=== PATIENT | female | born 1995 | race Caucasian/White ===

== ENCOUNTER 2020-02-10 15:37 | Inpatient (IN) | payer OTHER ==
[~2020-02-10] VITALS: Ht 30.5 cm; Wt 5.0 kg
[2020-02-10] MEDS ORDERED: MESALAMINE800 MG PO (15:48)
[2020-02-10] MEDS ORDERED: INTEGRA PLUS C1 EACH PO (15:48)
== END 2020-02-13 17:15 | disposition home or self-care (01) | DRG 387 ==
LOC: ER 15:37 → EDBD 15:41 → ER 15:41 → MEDI 02-11 08:38 → MEDJ 02-11 08:39 → MEDI 02-11 21:02 → MEDJ 02-12 15:40
PROVIDERS: ADMIT Internal Medicine; ATTEND Internal Medicine
PROC: BW21ZZZ Computerized Tomography (CT Scan) of Abdomen and Pelvis (ICD-10-PCS; principal; 2020-02-11)
DX: K51.80 Other ulcerative colitis without complications (principal); A08.8 Other specified intestinal infections; Z20.828 Contact with and (suspected) exposure to other viral communicable diseases

== ENCOUNTER 2020-09-18 11:12 | Inpatient (IN) | payer OTHER ==
[~2020-09-18] VITALS: Ht 152.4 cm; Wt 50.8 kg
[~2020-09-18 11:12] MED LIST: INTEGRA PLUS C1 EACH PO; MESALAMINE800 MG PO
== END 2020-09-23 11:17 | disposition home or self-care (01) | DRG 386 ==
LOC: ER 11:12 → MEDI 20:30
PROVIDERS: ADMIT Internal Medicine; ATTEND Internal Medicine
PROC: 0DJ08ZZ Inspection of Upper Intestinal Tract, Via Natural or Artificial Opening Endoscopic (ICD-10-PCS; principal; 2020-09-20)
PROC: 0DBM8ZX Excision of Descending Colon, Via Natural or Artificial Opening Endoscopic, Diagnostic (ICD-10-PCS; 2020-09-21)
PROC: 0DBL8ZX Excision of Transverse Colon, Via Natural or Artificial Opening Endoscopic, Diagnostic (ICD-10-PCS; 2020-09-21)
PROC: 0DBN8ZX Excision of Sigmoid Colon, Via Natural or Artificial Opening Endoscopic, Diagnostic (ICD-10-PCS; 2020-09-21)
PROC: 0DBP8ZX Excision of Rectum, Via Natural or Artificial Opening Endoscopic, Diagnostic (ICD-10-PCS; 2020-09-21)
PROC: BW21YZZ Computerized Tomography (CT Scan) of Abdomen and Pelvis using Other Contrast (ICD-10-PCS; 2020-09-21)
DX: K51.00 Ulcerative (chronic) pancolitis without complications (principal); N39.0 Urinary tract infection, site not specified; K51.80 Other ulcerative colitis without complications; K29.50 Unspecified chronic gastritis without bleeding; R10.13 Epigastric pain; Z20.822 Contact with and (suspected) exposure to COVID-19

== ENCOUNTER 2021-01-07 11:07 | Emergency (ER) | payer OTHER ==
[~2021-01-07] VITALS: Ht 152.4 cm; Wt 47.2 kg
[2021-01-07] MEDS ORDERED: PAROXETINE HCL10 MG PO (11:37)
[2021-01-07] MEDS ORDERED: CLORAZEPATE D3.75 MG PO (11:37)
[2021-01-07] MEDS ORDERED: FOLIC ACID1 MG PO (11:38)
[2021-01-07] MEDS ORDERED: FAMOTIDINE20 MG PO (11:38)
[2021-01-07] MEDS ORDERED: INFLECTRA100 MG (11:39)
== END 2021-01-07 15:59 | disposition home or self-care (01) ==
LOC: ER 11:07
DX: D50.0 Iron deficiency anemia secondary to blood loss (chronic) (principal)

== ENCOUNTER 2021-08-18 15:11 | Inpatient (IN) | payer OTHER ==
[~2021-08-18] VITALS: Ht 152.4 cm; Wt 60.8 kg
[~2021-08-18 15:11] MED LIST changes: +CLORAZEPATE D3.75 MG PO; +FAMOTIDINE20 MG PO; +FOLIC ACID1 MG PO; +INFLECTRA100 MG; +PAROXETINE HCL10 MG PO
== END 2021-08-23 16:05 | disposition home or self-care (01) | DRG 387 ==
LOC: ER 15:11 → MEDJ 21:30 → SEC-K 21:30 → MEDJ 08-19 12:55
PROVIDERS: ADMIT Internal Medicine; ATTEND Internal Medicine
PROC: BW21ZZZ Computerized Tomography (CT Scan) of Abdomen and Pelvis (ICD-10-PCS; principal; 2021-08-18)
DX: K51.00 Ulcerative (chronic) pancolitis without complications (principal); R10.32 Left lower quadrant pain; R19.8 Other specified symptoms and signs involving the digestive system and abdomen; Z20.822 Contact with and (suspected) exposure to COVID-19

== ENCOUNTER 2023-02-14 09:04 | Inpatient (IN) | payer OTHER ==
[~2023-02-14] VITALS: Ht 152.4 cm; Wt 62.6 kg
[2023-02-15] MEDS ORDERED: PAXIL40 MG PO (15:45)
[2023-02-15] MEDS ORDERED: PEPCID AC20 MG PO (15:45)
[2023-02-15] MEDS ORDERED: NEXIUM40 M1 PO (15:45)
[2023-02-15] MEDS ORDERED: MILLIPRED5 MG PO (15:45)
[2023-02-15] MEDS ORDERED: STELARA90 MG/1 ML (15:46)
[2023-02-15] MEDS ORDERED: MIRTAZAPINE15 M1 PO (15:46)
[2023-02-15] MEDS ORDERED: LEVSIN/SL0.125 MG SL (15:46)
[2023-02-15] MEDS ORDERED: ZOFRAN8 MG PO (15:46)
[2023-02-22] MEDS ORDERED: PREDNISONE2.5 MG (15:19)
[2023-02-22] MEDS ORDERED: ESTAZOLAM2 MG (15:19)
[2023-02-22] MEDS ORDERED: ONDANSETRON HCL4 MG (15:23)
[2023-02-22] MEDS ORDERED: VITAMIN D3125 MC1 (15:24)
[2023-02-22] MEDS ORDERED: IRON325 MG (15:25)
[2023-02-22 21:32] LABS: ALBUMIN 2.9 gm/dL (3.4-5.0); CALCIUM 8.4 mg/dL (8.5-10.1); CREATININE SERUM 0.58 mg/dL (0.55-1.02); GFR 125.66; MAGNESIUM 1.7 mg/dL (1.8-2.4); PHOSPHOROUS 2.3 mg/dL (2.5-4.9); POTASSIUM 3.57 mEq/L (3.5-5.1)
[2023-02-22 22:08] LABS: HEMATOCRIT 36.9 % (36.0-45.00); HEMOGLOBIN 12.1 g/dL (12.0-15.00); MEAN CELL VOLUME 89.1 fL (80.00-100.00); MEAN CORPUSCULAR HEMOGLOBIN 29.3 pg (27.00-32.0); MEAN CORPUSCULAR HGB CONC 32.8 g/dl (32.0-36.0); PLATELET COUNT 474 K/uL (150-450); RED BLOOD COUNT 4.14 M/uL (4.00-6.00); RED CELL DISTRIBUTION WIDTH 13.2 % (11.5-14.5)
[2023-02-23 06:40] LABS: ALBUMIN 2.8 gm/dL (3.4-5.0); CALCIUM 8.1 mg/dL (8.5-10.1); CREATININE SERUM 0.44 mg/dL (0.55-1.02); GFR 172.85; MAGNESIUM 1.8 mg/dL (1.8-2.4); PHOSPHOROUS 3.7 mg/dL (2.5-4.9); POTASSIUM 4.09 mEq/L (3.5-5.1)
[2023-02-23 07:06] LABS: HEMATOCRIT 36.7 % (36.0-45.00); HEMOGLOBIN 12.4 g/dL (12.0-15.00); MEAN CELL VOLUME 87.8 fL (80.00-100.00); MEAN CORPUSCULAR HEMOGLOBIN 29.6 pg (27.00-32.0); MEAN CORPUSCULAR HGB CONC 33.7 g/dl (32.0-36.0); RED BLOOD COUNT 4.17 M/uL (4.00-6.00); RED CELL DISTRIBUTION WIDTH 13.1 % (11.5-14.5)
[2023-02-23 08:05] LABS: PLATELET COUNT 506 K/uL (150-450)
[2023-02-24 08:31] LABS: HEMATOCRIT 36.6 % (36.0-45.00); HEMOGLOBIN 11.8 g/dL (12.0-15.00); MEAN CELL VOLUME 89.9 fL (80.00-100.00); MEAN CORPUSCULAR HGB CONC 32.3 g/dl (32.0-36.0); PLATELET COUNT 605 K/uL (150-450); RED BLOOD COUNT 4.07 M/uL (4.00-6.00); RED CELL DISTRIBUTION WIDTH 13.4 % (11.5-14.5)
[2023-02-24 08:39] LABS: CALCIUM 8.4 mg/dL (8.5-10.1); CREATININE SERUM 0.4 mg/dL (0.55-1.02); GFR 192.94; MAGNESIUM 2.2 mg/dL (1.8-2.4); PHOSPHOROUS 2.2 mg/dL (2.5-4.9); POTASSIUM 3.76 mEq/L (3.5-5.1)
[2023-02-25 09:31] LABS: HEMATOCRIT 37.2 % (36.0-45.00); MEAN CELL VOLUME 90.2 fL (80.00-100.00); MEAN CORPUSCULAR HEMOGLOBIN 29.2 pg (27.00-32.0); MEAN CORPUSCULAR HGB CONC 32.3 g/dl (32.0-36.0); RED BLOOD COUNT 4.13 M/uL (4.00-6.00); RED CELL DISTRIBUTION WIDTH 13.5 % (11.5-14.5)
[2023-02-25 09:32] LABS: PLATELET COUNT 546 K/uL (150-450)
[2023-02-26 08:02] LABS: CALCIUM 8.5 mg/dL (8.5-10.1); CREATININE SERUM 0.5 mg/dL (0.55-1.02); GFR 149.14; MAGNESIUM 2.1 mg/dL (1.8-2.4); PHOSPHOROUS 3.7 mg/dL (2.5-4.9); POTASSIUM 3.37 mEq/L (3.5-5.1)
[2023-02-26 08:15] LABS: HEMATOCRIT 37.1 % (36.0-45.00); HEMOGLOBIN 12.6 g/dL (12.0-15.00); MEAN CELL VOLUME 88.3 fL (80.00-100.00); MEAN CORPUSCULAR HGB CONC 33.9 g/dl (32.0-36.0); RED CELL DISTRIBUTION WIDTH 13.9 % (11.5-14.5)
[2023-02-26 09:24] LABS: PLATELET COUNT 681 K/uL (150-450)
[2023-02-28 06:31] LABS: HEMATOCRIT 38.2 % (36.0-45.00); HEMOGLOBIN 12.5 g/dL (12.0-15.00); MEAN CELL VOLUME 89.1 fL (80.00-100.00); MEAN CORPUSCULAR HEMOGLOBIN 29.2 pg (27.00-32.0); MEAN CORPUSCULAR HGB CONC 32.8 g/dl (32.0-36.0); RED BLOOD COUNT 4.29 M/uL (4.00-6.00); RED CELL DISTRIBUTION WIDTH 13.3 % (11.5-14.5)
[2023-02-28 06:42] LABS: ALBUMIN 2.7 gm/dL (3.4-5.0); CALCIUM 8.3 mg/dL (8.5-10.1); CREATININE SERUM 0.44 mg/dL (0.55-1.02); GFR 172.85; MAGNESIUM 2.1 mg/dL (1.8-2.4); PHOSPHOROUS 4.6 mg/dL (2.5-4.9); POTASSIUM 3.38 mEq/L (3.5-5.1)
[2023-02-28 07:36] LABS: PLATELET COUNT 680 K/uL (150-450)
[2023-02-28] MEDS ORDERED: PEPCID AC20 MG PO (08:05)
[2023-02-28] MEDS ORDERED: TRAM1TAB98 PO (08:05)
[2023-02-28] MEDS ORDERED: INTESTINEX680 M1 PO (08:06)
[2023-02-28] MEDS ORDERED: DICY20TA PO (08:06)
== END 2023-02-28 14:02 | disposition home or self-care (01) | DRG 331 ==
LOC: ADM 02-15 12:30 → EDSTATUS 02-15 12:30 → O/R 02-22 08:17 → SURH 02-22 12:30 → SURG 02-22 19:42
PROVIDERS: Internal Medicine Geriatric Medicine; ADMIT Surgery; ATTEND Surgery
PROC: 0DTP4ZZ Resection of Rectum, Percutaneous Endoscopic Approach (ICD-10-PCS; 2023-02-22)
PROC: 0DUP47Z Supplement Rectum with Autologous Tissue Substitute, Percutaneous Endoscopic Approach (ICD-10-PCS; 2023-02-22)
PROC: 0D1B4Z4 Bypass Ileum to Cutaneous, Percutaneous Endoscopic Approach (ICD-10-PCS; principal; 2023-02-22 16:00)
DX: K51.011 Ulcerative (chronic) pancolitis with rectal bleeding (principal)

== ENCOUNTER 2023-03-28 18:31 | Inpatient (IN) | payer OTHER ==
[~2023-03-28] VITALS: Ht 152.4 cm; Wt 59.0 kg
[~2023-03-28 18:31] MED LIST changes: +DICY20TA PO; +ESTAZOLAM2 MG; +INTESTINEX680 M1 PO; +IRON325 MG; +LEVSIN/SL0.125 MG SL; +MILLIPRED5 MG PO; +MIRTAZAPINE15 M1 PO; +NEXIUM40 M1 PO; +ONDANSETRON HCL4 MG; +PAXIL40 MG PO; +PEPCID AC20 MG PO; +PREDNISONE2.5 MG; +STELARA90 MG/1 ML; +TRAM1TAB98 PO; +VITAMIN D3125 MC1; +ZOFRAN8 MG PO
[2023-03-28 20:39] LABS: HEMATOCRIT 42.3 % (36.0-45.00); HEMOGLOBIN 14.2 g/dL (12.0-15.00); MEAN CELL VOLUME 89.7 fL (80.00-100.00); MEAN CORPUSCULAR HEMOGLOBIN 30.1 pg (27.00-32.0); MEAN CORPUSCULAR HGB CONC 33.6 g/dl (32.0-36.0); RED BLOOD COUNT 4.72 M/uL (4.00-6.00)
[2023-03-28 20:53] LABS: BILIRUBIN TOTAL 0.64 mg/dL (0.3-1.2); CALCIUM 9.8 mg/dL (8.5-10.1); CREATININE SERUM 0.61 mg/dL (0.55-1.02); GFR 118.56; GLOBULINA 4.6 G/DL (2.4-3.5); POTASSIUM 3.48 mEq/L (3.5-5.1); TOTAL PROTEIN 8.6 gm/dL (6.4-8.2)
[2023-03-28 21:05] LABS: PLATELET COUNT 572 K/uL (150-450)
[2023-03-29 00:39] LABS: INR 0.98; PARTIAL THROMBOPLASTIN TIME 29.2 SECONDS (22.0-34.0); PROTHROMBIN TIME 10.3 SECONDS (9.0-11.5)
[2023-03-29 03:17] LABS: URINE APPEARANCE Turbid; URINE BILIRRUBIN Small (NEGATIVE); URINE BLOOD Negative; URINE COLOR Orange; URINE GLUCOSE Negative (NEGATIVE); URINE LEUKOCYTE Small; URINE NITRATE Positive; URINE PROTEIN 30 (NEGATIVE)
[2023-03-29 03:18] LABS: URINE BACTERIA 1336.8 uL (0.0-1933); URINE EPITHELIAL CELLS 19.6 uL (0.0-38.8); URINE RBC 28.1 uL (0.0-20.8); URINE WBC 13.4 uL (0.0-23.2)
[2023-03-29 03:38] LABS: URINE CRYSTALS MANY /HPF; URINE MUCUS SCANT
[2023-03-30 05:37] LABS: HEMATOCRIT 35.4 % (36.0-45.00); HEMOGLOBIN 11.9 g/dL (12.0-15.00); MEAN CELL VOLUME 90.2 fL (80.00-100.00); MEAN CORPUSCULAR HEMOGLOBIN 30.3 pg (27.00-32.0); MEAN CORPUSCULAR HGB CONC 33.6 g/dl (32.0-36.0); RED BLOOD COUNT 3.93 M/uL (4.00-6.00); RED CELL DISTRIBUTION WIDTH 13.7 % (11.5-14.5)
[2023-03-30 06:00] LABS: CALCIUM 8.7 mg/dL (8.5-10.1); CREATININE SERUM 0.5 mg/dL (0.55-1.02); GFR 149.14; MAGNESIUM 1.8 mg/dL (1.8-2.4); PHOSPHOROUS 3.5 mg/dL (2.5-4.9); POTASSIUM 3.62 mEq/L (3.5-5.1)
[2023-03-30 06:33] LABS: PLATELET COUNT 495 K/uL (150-450)
[2023-03-30] MEDS ORDERED: CIPRO500 MG PO (13:57)
[2023-03-30] MEDS ORDERED: METRONIDAZOLE500 MG PO (13:57)
[2023-03-30] MEDS ORDERED: INTESTINEX680 M2 PO (13:57)
[2023-03-30] MEDS ORDERED: PREDNISONE2.5 MG PO (13:57)
== END 2023-03-30 14:07 | disposition home or self-care (01) | DRG 386 ==
LOC: ER 18:31 → MEDJ 22:55
PROVIDERS: General Practice; ADMIT Internal Medicine Geriatric Medicine; ATTEND Internal Medicine Geriatric Medicine
PROC: BW21ZZZ Computerized Tomography (CT Scan) of Abdomen and Pelvis (ICD-10-PCS; principal; 2023-03-29)
DX: K51.80 Other ulcerative colitis without complications (principal); A09 Infectious gastroenteritis and colitis, unspecified

== ENCOUNTER 2023-07-19 07:22 | Outpatient (CLI) | payer OTHER ==
[~2023-07-19 07:22] MED LIST changes: +CIPRO500 MG PO; +INTESTINEX680 M2 PO; +METRONIDAZOLE500 MG PO; +PREDNISONE2.5 MG PO
== END 2023-07-19 07:27 | disposition home or self-care (01) ==
LOC: RX STUDY 07:22
PROVIDERS: ATTEND Surgery
DX: K51.011 Ulcerative (chronic) pancolitis with rectal bleeding (principal); R19.7 Diarrhea, unspecified

== ENCOUNTER 2023-07-27 11:23 | Outpatient (CLI) | payer OTHER | END 2023-07-27 11:26 | disposition home or self-care (01) | LOC: RAD 11:23 | PROVIDERS: ATTEND Surgery | DX: K51.011 Ulcerative (chronic) pancolitis with rectal bleeding (principal); R19.7 Diarrhea, unspecified ==

== ENCOUNTER 2023-07-30 09:15 | Inpatient (IN) | payer OTHER ==
[~2023-07-30] VITALS: Ht 154.9 cm; Wt 69.9 kg
[2023-08-02] MEDS ORDERED: BUPIVACAINE HCL/PF 0.5% 30ML ML ONE (07:10)
[2023-08-02] MEDS ORDERED: CHLORHEXIDINE GLUCONATE 120 ML BOTTLE TOP ONE ×2 (07:11→08:45)
[2023-08-02] MEDS ORDERED: METRONIDAZOLE/SODIUM CHLORIDE 500 MG/100 ML PIGGYBACK IV ONE ×2 (07:11→08:45)
[2023-08-02] MEDS ORDERED: levoFLOXacin IN DEXTROSE 5 % 5 MG/ML PIGGYBAG IV ONE ×2 (07:12→08:45)
[2023-08-02] MEDS ORDERED: LIDOCAINE HCL 1%/Epi 20ML VIAL IJ ONE ×2 (07:12→08:45)
[2023-08-02] MEDS ORDERED: DEXTROSE 50 % IN WATER 0.5 G/ML DISP.SYRIN IV PRN (08:30)
[2023-08-02] MEDS ORDERED: 0.9 % SODIUM CHLORIDE 1,000 ML IV SCH (08:30)
[2023-08-02] MEDS ORDERED: OxyCODONE HCL 5 MG TABLET (ROXICODONE) PO PRN (08:30)
[2023-08-02] MEDS ORDERED: MORPHINE SULFATE 4 MG/ML CARTRIDGE IV PRN (08:30)
[2023-08-02] MEDS ORDERED: ONDANSETRON HCL 2 MG/ML VIAL IV PRN (08:30)
[2023-08-02] MEDS ORDERED: BUPIVACAINE HCL 30 ML VIAL IJ ONE (08:45)
[2023-08-02] MEDS ORDERED: METRONIDAZOLE/SODIUM CHLORIDE 500 MG/100 ML PIGGYBACK IV SCH (09:00)
[2023-08-02] MEDS ORDERED: GABAPENTIN 300 MG CAPSULE PO SCH (09:00)
[2023-08-02] MEDS ORDERED: HYOSCYAMINE SULFATE 0.125 MG TAB.SUBL SL SCH (09:00)
[2023-08-02] MEDS ORDERED: FAMOTIDINE/PF 20 MG/2 ML VIAL IV PUSH SCH (09:00)
[2023-08-02] MEDS ORDERED: INSULIN LISPRO 1,000 UNIT/10 ML UNITS SUBCUTANEO SCH (11:00)
[2023-08-02 11:52] LABS: HEMATOCRIT 38.5 % (36.0-45.00); HEMOGLOBIN 12.9 g/dL (12.0-15.00); MEAN CELL VOLUME 89.2 fL (80.00-100.00); MEAN CORPUSCULAR HEMOGLOBIN 29.8 pg (27.00-32.0); MEAN CORPUSCULAR HGB CONC 33.4 g/dl (32.0-36.0); RED BLOOD COUNT 4.32 M/uL (4.00-6.00); RED CELL DISTRIBUTION WIDTH 13.7 % (11.5-14.5)
[2023-08-02 12:03] LABS: ALBUMIN 3.4 gm/dL (3.4-5.0); CALCIUM 8.5 mg/dL (8.5-10.1); CREATININE SERUM 0.67 mg/dL (0.55-1.02); GFR 105.58; MAGNESIUM 1.9 mg/dL (1.8-2.4); PHOSPHOROUS 3.2 mg/dL (2.5-4.9); POTASSIUM 4.19 mEq/L (3.5-5.1)
[2023-08-02 12:16] LABS: PLATELET COUNT 358 K/uL (150-450)
[2023-08-02] MEDS ORDERED: ACETAMINOPHEN 500 MG GEL..CAP PO SCH (14:00)
[2023-08-02] MEDS ORDERED: PATIENTS OWN MEDICATION (MEDICAMENTO EN PISO) PO SCH (21:00)
[2023-08-03 08:05] LABS: ALBUMIN 3.3 gm/dL (3.4-5.0); CALCIUM 8.4 mg/dL (8.5-10.1); CREATININE SERUM 0.5 mg/dL (0.55-1.02); MAGNESIUM 2.1 mg/dL (1.8-2.4); PHOSPHOROUS 3.5 mg/dL (2.5-4.9)
[2023-08-03] MEDS ORDERED: PAROXETINE HCL PO SCH (09:00)
[2023-08-03] MEDS ORDERED: ENOXAPARIN SODIUM 40 MG/0.4 ML SYRINGE SUBCUTANEO SCH (17:00)
[2023-08-03 17:54] LABS: HEMATOCRIT 42.1 % (36.0-45.00); HEMOGLOBIN 14.2 g/dL (12.0-15.00); MEAN CELL VOLUME 87.8 fL (80.00-100.00); MEAN CORPUSCULAR HEMOGLOBIN 29.6 pg (27.00-32.0); MEAN CORPUSCULAR HGB CONC 33.7 g/dl (32.0-36.0); RED BLOOD COUNT 4.79 M/uL (4.00-6.00); RED CELL DISTRIBUTION WIDTH 13.9 % (11.5-14.5)
[2023-08-03 18:24] LABS: PLATELET COUNT 421 K/uL (150-450)
[2023-08-04 08:16] LABS: HEMATOCRIT 37.5 % (36.0-45.00); HEMOGLOBIN 12.6 g/dL (12.0-15.00); MEAN CELL VOLUME 88.6 fL (80.00-100.00); MEAN CORPUSCULAR HEMOGLOBIN 29.8 pg (27.00-32.0); MEAN CORPUSCULAR HGB CONC 33.6 g/dl (32.0-36.0); PLATELET COUNT 383 K/uL (150-450); RED BLOOD COUNT 4.23 M/uL (4.00-6.00); RED CELL DISTRIBUTION WIDTH 13.7 % (11.5-14.5)
[2023-08-04 08:38] LABS: CALCIUM 8.8 mg/dL (8.5-10.1); CREATININE SERUM 0.51 mg/dL (0.55-1.02); GFR 144.65; MAGNESIUM 2.4 mg/dL (1.8-2.4); PHOSPHOROUS 2.8 mg/dL (2.5-4.9); POTASSIUM 3.72 mEq/L (3.5-5.1)
[2023-08-04] MEDS ORDERED: ENOXAPARIN SODIUM 40 MG/0.4 ML SYRINGE SUBCUTANEO SCH (09:00)
[2023-08-04] MEDS ORDERED: MORPHINE SULFATE 4 MG/ML CARTRIDGE IV PRN (19:45)
[2023-08-05] MEDS ORDERED: HYOSCYAMINE0.125 M1 SL (11:08)
[2023-08-05] MEDS ORDERED: PEPCID AC20 MG PO (11:09)
[2023-08-05] MEDS ORDERED: TRAM1TAB98 PO (11:09)
== END 2023-08-05 11:37 | disposition home or self-care (01) | DRG 348 ==
LOC: O/R 08-02 05:40 → SURG 08-02 05:40 → SURH 08-02 09:15 → SURG 08-05 11:37
PROVIDERS: Internal Medicine Geriatric Medicine; ADMIT Surgery; ATTEND Surgery
PROC: 0DBB4ZZ Excision of Ileum, Percutaneous Endoscopic Approach (ICD-10-PCS; principal; 2023-08-02 13:30)
DX: Z43.2 Encounter for attention to ileostomy (principal); K51.90 Ulcerative colitis, unspecified, without complications; R19.7 Diarrhea, unspecified; K66.0 Peritoneal adhesions (postprocedural) (postinfection)